=== PATIENT | female | born 1980 | race Caucasian/White ===

== ENCOUNTER 2016-11-25 01:52 | Inpatient (IN) | payer MEDICAID ==
[~2016-11-25] VITALS: Ht 167.6 cm; Wt 77.8 kg
[~2016-11-25 01:52] MED LIST: ALBU1.25 IH; BUDE10.2 INH; IPRA3AMP NEB; LEVO500T33 PO; PRED10TA PO; TIOT18CA INH
[2016-11-25] MEDS ORDERED: LEVO25TA4 PO (02:16)
[2016-11-25 02:42] LABS: ASPARTATE AMINO TRANSFERASE 16 U/L (15-37); BLOOD UREA NITROGEN 3 mg/dL (7-18)
[2016-11-25] MEDS ORDERED: methylPREDNISolone SOD SUCC 125 MG/2 ML IVPush STA (03:08)
[2016-11-25] MEDS ORDERED: SODIUM CHLORIDE 0.9% 1,000ML IVBOLUS ONE (03:30)
[2016-11-25] MEDS ORDERED: SODIUM CHLORIDE 0.9% 1,000 ML IV ONE (03:37)
[2016-11-25] MEDS ORDERED: DIME240C PO (03:43)
[2016-11-25] MEDS ORDERED: LEVO150T5 PO (03:44)
[2016-11-25] MEDS ORDERED: ONDANSETRON 2MG/ML, 2ML IVPush PRN (04:00)
[2016-11-25] MEDS ORDERED: MORPHINE SULFATE 4 MG/ML, 1ML IVPush PRN ×2 (04:00→06:00)
[2016-11-25] MEDS ORDERED: NS + 20MEQ KCL 1,000 ML IV SCH (05:34)
[2016-11-25 05:58] VITALS: BP 129/78
[2016-11-25] MEDS ORDERED: POLYETHYLENE GLYCOL 17 GM PACKET PO PRN (06:00)
[2016-11-25] MEDS ORDERED: LEVOTHYROXINE 150 MCG TABLET PO SCH (06:00)
[2016-11-25] MEDS ORDERED: ACETAMINOPHEN 325 MG TABLET PO PRN (06:00)
[2016-11-25] MEDS ORDERED: HYDROcodone/APAP 5/325 TABLET PO PRN (06:00)
[2016-11-25] MEDS ORDERED: ONDANSETRON 2MG/ML, 2ML IVP PRN (06:00)
[2016-11-25] MEDS ORDERED: DOCUSATE 100 MG CAPSULE PO PRN (06:00)
[2016-11-25 07:54] VITALS: BP 116/71
[2016-11-25] MEDS: DIMETHYL FUMARATE 240 MG HOMEMEDPO SCH ×2 (08:00→19:39)
[2016-11-25] MEDS: SENNA/DOCUSATE TABLET PO SCH (09:00)
[2016-11-25] MEDS ORDERED: GADOBUTROL 7.5 MMOL/7.5 ML PFS ONE (09:39)
[2016-11-25 13:45] VITALS: BP 122/79
[2016-11-25] MEDS: OMEPRAZOLE 20 MG CAPSULE.DR PO SCH (19:38)
[2016-11-25 21:18] VITALS: BP 125/74
[2016-11-26 01:42] VITALS: BP 102/65
[2016-11-26 05:54] LABS: BLOOD UREA NITROGEN 5 mg/dL (7-18)
[2016-11-26 05:59] LABS: ASPARTATE AMINO TRANSFERASE 16 U/L (15-37)
[2016-11-26] MEDS: OMEPRAZOLE 20 MG CAPSULE.DR PO SCH (07:50)
[2016-11-26] MEDS: DIMETHYL FUMARATE 240 MG HOMEMEDPO SCH (07:51)
[2016-11-26 08:11] VITALS: BP 129/77
[2016-11-26] MEDS: SENNA/DOCUSATE TABLET PO SCH (09:15)
[2016-11-26 13:48] VITALS: BP 146/75
== END 2016-11-26 14:24 | disposition home or self-care (01) | DRG 59 ==
LOC: ED 03:17 → EDIP 03:37 → 3NE 04:48
PROVIDERS: ADMIT Family Medicine; ATTEND Family Medicine
DX: G35 Multiple sclerosis (principal); E44.1 Mild protein-calorie malnutrition; F17.210 Nicotine dependence, cigarettes, uncomplicated; I10 Essential (primary) hypertension; J44.9 Chronic obstructive pulmonary disease, unspecified; D72.829 Elevated white blood cell count, unspecified; R73.9 Hyperglycemia, unspecified; Z68.27 Body mass index [BMI] 27.0-27.9, adult; Z88.0 Allergy status to penicillin; Z79.899 Other long term (current) drug therapy
CPT/HCPCS: 36415; 70553; 72158; 80053; 81001; 83735; 85025; 96365; A9585; J2930; J3480; J7030